=== PATIENT | female | born 1960 | race African-American/Black ===

== ENCOUNTER 2017-02-28 11:09 | Inpatient (IN) | payer MEDICARE, MEDICAID ==
[~2017-02-28] VITALS: Ht 171.4 cm; Wt 89.2 kg
[~2017-02-28 11:09] MED LIST: ASPI-825 PO
[2017-02-28] MEDS ORDERED: OMEG100019 PO (12:05)
[2017-02-28] MEDS ORDERED: PRED5 PO (12:09)
[2017-02-28] MEDS ORDERED: ATEN25 PO (12:09)
[2017-02-28] MEDS ORDERED: GABA-533 PO (12:09)
[2017-02-28] MEDS ORDERED: HYDR25TA PO (12:09)
[2017-02-28] MEDS ORDERED: IBUP-2070 PO (12:09)
[2017-02-28] MEDS ORDERED: ATOR20TA86 PO (12:09)
[2017-02-28 12:20] LABS: BASOPHILS # (AUTO) 0.06 K/uL (0.00-0.20); BASOPHILS % (AUTO) 0.6 % (0.0-2.0); EOSINOPHILS # (AUTO) 0.15 K/uL (0.00-0.70); EOSINOPHILS % (AUTO) 1.53 % (1.0-6.0); HEMATOCRIT 42.6 % (36-46); LYMPHOCYTES # (AUTO) 1.7 K/uL (1.0-4.8); LYMPHOCYTES % (AUTO) 16.7 % (22.0-44.0); MEAN CORPUSCULAR HEMOGLOBIN 30.6 pg (26.0-34.0); MEAN CORPUSCULAR HGB CONC 32.8 G/dL (31.0-37.0); MEAN CORPUSCULAR VOLUME 93 fL (80-100); MONOCYTES # (AUTO) 0.8 K/uL (0.1-1.0); MONOCYTES % (AUTO) 7.5 % (2.0-9.0); NEUTROPHILS # (AUTO) 7.4 K/uL (1.8-7.7); NEUTROPHILS % (AUTO) 73.7 % (40.0-70.0); PLATELET COUNT (AUTO) 192 K/uL (150-450); RED BLOOD CELL COUNT(AUTO) 4.56 MIL/uL (4.00-5.20); RED CELL DISTRIBUTION WIDTH 13.2 % (11.5-14.5); WHITE BLOOD COUNT (AUTO) 10.1 K/uL (4.5-11.0)
[2017-02-28 12:26] LABS: ANION GAP 9 mmol/L (8-16); CALCIUM, TOTAL 9.3 mg/dL (8.8-10.5); CARBON DIOXIDE 30 mmol/L (22-29); CHLORIDE 99 mmol/L (98-107); CREATININE 0.83 mg/dL (0.60-1.30); GLOMERULAR FILTR. RATE CALC > 60 mL/min (>60); POTASSIUM 3.7 mmol/L (3.5-5.1); SODIUM SERUM 138 mmol/L (136-145); UREA NITROGEN, BLOOD 11 mg/dL (7-18)
[2017-02-28 12:31] LABS: ALANINE AMINOTRANSFERASE 31 U/L (12-78); ALBUMIN 4.1 g/dL (3.4-5.0); ASPARTATE AMINOTRANSFERASE 19 U/L (15-37); BILIRUBIN,TOTAL 1.4 mg/dL (0.1-1.0); TOTAL PROTEIN, SERUM 8.2 g/dL (6.4-8.2)
[2017-02-28] MEDS ORDERED: ASPIRIN 81 MG CHEWABLE TABLET PO ONE (13:00)
[2017-02-28] MEDS ORDERED: ONDANSETRON HCL 4 MG/2 ML VIAL IVP ONE (13:00)
[2017-02-28] MEDS ORDERED: MORPHINE SULFATE 4 MG/ML SYRINGE IVP ONE (13:00)
[2017-02-28 14:31] LABS: PROTHROMBIN TIME 10.5 SEC (9.4-11.6)
[2017-02-28 14:40] LABS: ERYTHROCYTE SEDIMENTATION RATE 42 MM/HR (0-20)
[2017-02-28 17:08] VITALS: BP 180/87
[2017-02-28 17:55] VITALS: BP 144/76
[2017-02-28] MEDS: HYDROCODONE/ACETAMINOPHEN 5-325 MG TABLET PO PRN (17:56)
[2017-02-28 19:44] VITALS: BP 110/63
[2017-02-28 20:22] LABS: HEMOGLOBIN A1C 5.8 % (4.5-6.2)
[2017-02-28 20:31] LABS: CHOL/HDL RATIO 2.8 (3.9-5.7); THYROID STIMULATING HORMONE 2.49 uIU/mL (0.36-3.74)
[2017-02-28] MEDS ORDERED: GABAPENTIN 300 MG CAPSULE PO SCH (21:00)
[2017-02-28] MEDS: -LIDODERM PATCH NOTE- MISC SCH ×2 (21:32)
[2017-02-28 23:36] VITALS: BP 117/66
[2017-03-01] MEDS ORDERED: ONDANSETRON HCL 4 MG/2 ML VIAL IVP PRN
[2017-03-01] MEDS: HYDROCODONE/ACETAMINOPHEN 5-325 MG TABLET PO PRN ×2 (04:01→16:37)
[2017-03-01 04:20] VITALS: BP 115/68
[2017-03-01 06:27] LABS: BASOPHILS % (AUTO) 0.3 % (0.0-2.0); EOSINOPHILS % (AUTO) 3.6 % (1.0-6.0); HEMATOCRIT 42.1 % (36-46); HEMOGLOBIN 13.3 g/dL (12.0-16.0); LYMPHOCYTES # (AUTO) 2.6 K/uL (1.0-4.8); LYMPHOCYTES % (AUTO) 26.3 % (22.0-44.0); MEAN CORPUSCULAR HEMOGLOBIN 29.8 pg (26.0-34.0); MEAN CORPUSCULAR HGB CONC 31.7 G/dL (31.0-37.0); MEAN CORPUSCULAR VOLUME 94 fL (80-100); MONOCYTES # (AUTO) 0.8 K/uL (0.1-1.0); MONOCYTES % (AUTO) 8.3 % (2.0-9.0); NEUTROPHILS # (AUTO) 6.2 K/uL (1.8-7.7); NEUTROPHILS % (AUTO) 61.5 % (40.0-70.0); PLATELET COUNT (AUTO) 190 K/uL (150-450); RED BLOOD CELL COUNT(AUTO) 4.48 MIL/uL (4.00-5.20); RED CELL DISTRIBUTION WIDTH 13.3 % (11.5-14.5)
[2017-03-01 07:10] LABS: ALANINE AMINOTRANSFERASE 28 U/L (12-78); ALBUMIN 3.7 g/dL (3.4-5.0); ANION GAP 7 mmol/L (8-16); ASPARTATE AMINOTRANSFERASE 19 U/L (15-37); BILIRUBIN,TOTAL 1.5 mg/dL (0.1-1.0); CARBON DIOXIDE 31 mmol/L (22-29); CHLORIDE 99 mmol/L (98-107); CHOL/HDL RATIO 3.2 (3.9-5.7); CREATININE 0.87 mg/dL (0.60-1.30); GLOMERULAR FILTR. RATE CALC > 60 mL/min (>60); POTASSIUM 3.5 mmol/L (3.5-5.1); SODIUM SERUM 137 mmol/L (136-145); TOTAL PROTEIN, SERUM 7.6 g/dL (6.4-8.2); UREA NITROGEN, BLOOD 14 mg/dL (7-18)
[2017-03-01 07:11] LABS: HEMOGLOBIN A1C 5.7 % (4.5-6.2)
[2017-03-01 07:12] VITALS: BP 111/72
[2017-03-01 08:38] LABS: VITAMIN B12 LEVEL > 2000 pg/mL (211-911)
[2017-03-01] MEDS: FISH OIL/OMEGA-3 FATTY ACIDS 500 MG CAPSULE PO SCH (08:47)
[2017-03-01] MEDS: IBUPROFEN 600 MG TABLET PO PRN ×2 (08:47→20:18)
[2017-03-01] MEDS: ATENOLOL 25 MG TABLET PO SCH (08:47)
[2017-03-01] MEDS: HYDROCHLOROTHIAZIDE 25 MG TABLET PO SCH (08:49)
[2017-03-01] MEDS: PredniSONE 5 MG TABLET PO SCH (08:49)
[2017-03-01] MEDS: FAMOTIDINE 20 MG TABLET PO SCH ×2 (08:49→20:18)
[2017-03-01] MEDS: LIDOCAINE HCL 5% TRANSDERMAL PATCH TD SCH (08:49)
[2017-03-01] MEDS: ASPIRIN 81 MG CHEWABLE TABLET PO SCH (09:00)
[2017-03-01] MEDS ORDERED: ASPIRIN 81 MG CHEWABLE TABLET PO SCH (09:00)
[2017-03-01 11:20] VITALS: BP 136/59
[2017-03-01 15:04] VITALS: BP 137/79
[2017-03-01] MEDS: BACLOFEN 10 MG TABLET PO SCH ×2 (16:37→20:18)
[2017-03-01] MEDS: GABAPENTIN 400 MG CAPSULE PO SCH (16:37)
[2017-03-01 19:48] VITALS: BP 120/76
[2017-03-01] MEDS: ATORVASTATIN CALCIUM 20 MG TABLET PO SCH (20:18)
[2017-03-01] MEDS: -LIDODERM PATCH NOTE- MISC SCH ×2 (20:19)
[2017-03-01 23:38] VITALS: BP 96/66
[2017-03-02] VITALS (7 sets, daily range): BP systolic 98–130; BP diastolic 50–79
[2017-03-02] MEDS: HYDROCODONE/ACETAMINOPHEN 5-325 MG TABLET PO PRN (05:07)
[2017-03-02] MEDS: FISH OIL/OMEGA-3 FATTY ACIDS 500 MG CAPSULE PO SCH (08:24)
[2017-03-02] MEDS: GABAPENTIN 400 MG CAPSULE PO SCH (08:24)
[2017-03-02] MEDS: PredniSONE 5 MG TABLET PO SCH (08:25)
[2017-03-02] MEDS: BACLOFEN 10 MG TABLET PO SCH ×2 (08:25→20:39)
[2017-03-02] MEDS: ATENOLOL 25 MG TABLET PO SCH (08:25)
[2017-03-02] MEDS: HYDROCHLOROTHIAZIDE 25 MG TABLET PO SCH (08:25)
[2017-03-02] MEDS: ASPIRIN 81 MG CHEWABLE TABLET PO SCH (08:25)
[2017-03-02] MEDS: FAMOTIDINE 20 MG TABLET PO SCH ×2 (08:25→20:39)
[2017-03-02] MEDS: IBUPROFEN 600 MG TABLET PO PRN (08:26)
[2017-03-02] MEDS: LIDOCAINE HCL 5% TRANSDERMAL PATCH TD SCH (08:30)
[2017-03-02] MEDS ORDERED: ONDANSETRON HCL 4 MG/2 ML VIAL IM PRN (16:15)
[2017-03-02] MEDS: ATORVASTATIN CALCIUM 20 MG TABLET PO SCH (20:38)
[2017-03-02] MEDS: -LIDODERM PATCH NOTE- MISC SCH ×2 (20:41)
[2017-03-03 04:56] VITALS: BP 109/62
[2017-03-03] MEDS: HYDROCODONE/ACETAMINOPHEN 5-325 MG TABLET PO PRN (07:38)
[2017-03-03 07:41] VITALS: BP 118/67
[2017-03-03] MEDS: BACLOFEN 10 MG TABLET PO SCH (08:53)
[2017-03-03] MEDS: PredniSONE 5 MG TABLET PO SCH (08:53)
[2017-03-03] MEDS: GABAPENTIN 400 MG CAPSULE PO SCH (08:53)
[2017-03-03] MEDS: ASPIRIN 81 MG CHEWABLE TABLET PO SCH (08:53)
[2017-03-03] MEDS: FISH OIL/OMEGA-3 FATTY ACIDS 500 MG CAPSULE PO SCH (08:53)
[2017-03-03] MEDS: HYDROCHLOROTHIAZIDE 25 MG TABLET PO SCH (08:53)
[2017-03-03] MEDS: FAMOTIDINE 20 MG TABLET PO SCH (08:53)
[2017-03-03] MEDS: LIDOCAINE HCL 5% TRANSDERMAL PATCH TD SCH (08:54)
[2017-03-03] MEDS ORDERED: KETOROLAC TROMETHAMINE 15 MG/ML VIAL IVP ONE (10:45)
[2017-03-03 12:05] VITALS: BP 114/71
[2017-03-03] MEDS: ATENOLOL 25 MG TABLET PO SCH (12:14)
[2017-03-03 14:48] VITALS: BP 113/50
[2017-03-03] MEDS ORDERED: SUMA25TA9 PO (15:06)
== END 2017-03-03 16:50 | disposition home or self-care (01) | DRG 65 ==
LOC: EMS 11:11 → 5N 15:31
PROVIDERS: ADMIT Family Medicine; ATTEND Family Medicine
DX: I63.9 Cerebral infarction, unspecified (principal); I16.1 Hypertensive emergency; G43.109 Migraine with aura, not intractable, without status migrainosus; E78.5 Hyperlipidemia, unspecified; G89.4 Chronic pain syndrome; M79.7 Fibromyalgia; I10 Essential (primary) hypertension; I70.0 Atherosclerosis of aorta; M19.90 Unspecified osteoarthritis, unspecified site; M54.81 Occipital neuralgia; G62.9 Polyneuropathy, unspecified; Z88.0 Allergy status to penicillin; Z79.899 Other long term (current) drug therapy; Z79.1 Long term (current) use of non-steroidal anti-inflammatories (NSAID); Z79.82 Long term (current) use of aspirin; Z90.49 Acquired absence of other specified parts of digestive tract; Z90.710 Acquired absence of both cervix and uterus; Z79.52 Long term (current) use of systemic steroids; Z86.73 Personal history of transient ischemic attack (TIA), and cerebral infarction without residual deficits
CPT/HCPCS: 70450; 70544; 70551; 72141; 76881; 82607; 82746; 83036; 83735; 84443; 85651; 92523; 93005; 93306; 93880; 96374; 96375; 97162; 97165; 97535; 99291; J1885; J2270; J2405

== ENCOUNTER 2020-04-14 14:53 | Emergency (ER) | payer MEDICARE, MEDICAID ==
[~2020-04-14] VITALS: Ht 175.3 cm; Wt 97.7 kg
[~2020-04-14 14:53] MED LIST changes: +ATEN-73 PO; +ATOR20TA86 PO; +GABA-1201 PO; +HYDR-1475 PO; +IBUP-2070 PO; +OMEG-135 PO; +PRED5 PO; +SUMA25TA9 PO
[2020-04-14 16:11] LABS: BASOPHILS % (AUTO) 0.6 % (0.0-2.0); HEMATOCRIT 42.4 % (36-46); LYMPHOCYTES # (AUTO) 1.8 K/uL (1.0-4.8); MEAN CORPUSCULAR HGB CONC 33.1 G/dL (31.0-37.0); MEAN CORPUSCULAR VOLUME 94 fL (80-100); MONOCYTES # (AUTO) 0.4 K/uL (0.1-1.0); MONOCYTES % (AUTO) 5.9 % (2.0-9.0); NEUTROPHILS # (AUTO) 4.4 K/uL (1.8-7.7); NEUTROPHILS % (AUTO) 64.5 % (40.0-70.0); PLATELET COUNT (AUTO) 187 K/uL (150-450); RED BLOOD CELL COUNT(AUTO) 4.53 MIL/uL (4.00-5.20); RED CELL DISTRIBUTION WIDTH 12.4 % (11.5-14.5)
[2020-04-14 16:21] LABS: ANION GAP 6 mmol/L (8-16); CALCIUM, TOTAL 9.1 mg/dL (8.8-10.5); CARBON DIOXIDE 30 mmol/L (22-29); CHLORIDE 104 mmol/L (98-107); CREATININE 1.03 mg/dL (0.60-1.30); GLOMERULAR FILTR. RATE CALC > 60 mL/min (>60); GLUCOSE,RANDOM 100 mg/dL (70-110); POTASSIUM 3.8 mmol/L (3.5-5.1); SODIUM SERUM 140 mmol/L (136-145); UREA NITROGEN, BLOOD 16 mg/dL (7-18)
[2020-04-14 16:29] LABS: ALANINE AMINOTRANSFERASE 21 U/L (12-78); ALBUMIN 3.9 g/dL (3.4-5.0); ALKALINE PHOSPHATASE 81 U/L (46-116); ASPARTATE AMINOTRANSFERASE 19 U/L (15-37); BILIRUBIN,TOTAL 0.7 mg/dL (0.1-1.0); TOTAL PROTEIN, SERUM 7.6 g/dL (6.4-8.2)
[2020-04-14 17:57] VITALS: BP 179/90
== END 2020-04-14 18:19 | disposition home or self-care (01) ==
LOC: EMS 15:03
DX: K92.0 Hematemesis (principal); I10 Essential (primary) hypertension; F12.90 Cannabis use, unspecified, uncomplicated; Z88.0 Allergy status to penicillin; Z79.899 Other long term (current) drug therapy

== ENCOUNTER 2022-02-09 17:39 | Emergency (ER) | payer MEDICARE, MEDICAID ==
[~2022-02-09] VITALS: Ht 170.2 cm; Wt 49.5 kg
[~2022-02-09 17:39] MED LIST changes: -ASPI-825 PO; -HYDR-1475 PO; -IBUP-2070 PO; +OMEG-108 PO; -OMEG-135 PO; +PRED-549 PO; -PRED5 PO
[2022-02-09] MEDS ORDERED: KETOROLAC TROMETHAMINE 60 MG/2 ML VIAL IM ONE (19:15)
[2022-02-09] MEDS ORDERED: NAPR-1025 PO (20:39)
[2022-02-09 21:30] VITALS: BP 165/96
== END 2022-02-09 21:36 | disposition home or self-care (01) ==
LOC: EMS 17:47
DX: S83.91XA Sprain of unspecified site of right knee, initial encounter (principal); S93.401A Sprain of unspecified ligament of right ankle, initial encounter; I10 Essential (primary) hypertension; M79.7 Fibromyalgia; F12.90 Cannabis use, unspecified, uncomplicated; Z86.79 Personal history of other diseases of the circulatory system; Z86.69 Personal history of other diseases of the nervous system and sense organs; Z90.710 Acquired absence of both cervix and uterus; Z98.890 Other specified postprocedural states; Z88.0 Allergy status to penicillin; W18.39XA Other fall on same level, initial encounter; Y93.89 Activity, other specified; Y92.89 Other specified places as the place of occurrence of the external cause; Y99.8 Other external cause status
CPT/HCPCS: 73562; 73590; 73610; 96372; 99284; J1885

== ENCOUNTER 2024-02-10 16:18 | Emergency (ER) | payer MEDICARE, MEDICAID ==
[~2024-02-10] VITALS: Ht 170.2 cm; Wt 94.1 kg
[~2024-02-10 16:18] MED LIST changes: +ATOR20TA PO; -ATOR20TA86 PO; +NAPR-1025 PO; -OMEG-108 PO; +OMEG-135 PO; +SUMA25TA15 PO; -SUMA25TA9 PO
[2024-02-10] MEDS ORDERED: AMLO-257 PO (16:39)
[2024-02-10] MEDS ORDERED: GABA-1181 PO (16:39)
[2024-02-10] MEDS ORDERED: LISI-893 PO (16:39)
[2024-02-10 16:41] VITALS: TEMP 99.4
[2024-02-10] MEDS: LevETIRAcetam 500 MG TABLET PO ONE (19:04)
[2024-02-10 19:37] LABS: BASOPHILS % (AUTO) 0.8 % (0.0-2.0); EOSINOPHILS % (AUTO) 2.9 % (1.0-6.0); HEMATOCRIT 44.1 % (36-46); HEMOGLOBIN 14.4 g/dL (12.0-16.0); LYMPHOCYTES % (AUTO) 25.9 % (22.0-44.0); MEAN CORPUSCULAR HEMOGLOBIN 30.8 pg (26.0-34.0); MEAN CORPUSCULAR HGB CONC 32.7 G/dL (31.0-37.0); MEAN CORPUSCULAR VOLUME 94 fL (80-100); MONOCYTES # (AUTO) 0.8 K/uL (0.1-1.0); MONOCYTES % (AUTO) 6.9 % (2.0-9.0); NEUTROPHILS # (AUTO) 7.4 K/uL (1.8-7.7); NEUTROPHILS % (AUTO) 63.5 % (40.0-70.0); PLATELET COUNT (AUTO) 208 K/uL (150-450); RED BLOOD CELL COUNT(AUTO) 4.69 MIL/uL (4.00-5.20); RED CELL DISTRIBUTION WIDTH 12.6 % (11.5-14.5); WHITE BLOOD COUNT (AUTO) 11.7 K/uL (4.5-11.0)
[2024-02-10 20:09] LABS: ANION GAP 12 mmol/L (8-16); CALCIUM, TOTAL 9.1 mg/dL (8.8-10.5); CARBON DIOXIDE 27 mmol/L (22-29); CHLORIDE 102 mmol/L (98-107); CREATININE 0.82 mg/dL (0.60-1.30); GLOMERULAR FILTR. RATE CALC > 60 mL/min (>60); GLUCOSE,RANDOM 109 mg/dL (70-110); POTASSIUM 3.8 mmol/L (3.5-5.1); SODIUM SERUM 141 mmol/L (136-145); UREA NITROGEN, BLOOD 19 mg/dL (7-18)
[2024-02-10 20:10] VITALS: BP 129/80; PULSE 98; RESP 14
[2024-02-10] MEDS ORDERED: NAPR-1193 PO (21:09)
[2024-02-10] MEDS ORDERED: LEVE750T4 PO (21:09)
[2024-02-10] MEDS ORDERED: NAPROXEN 250 MG TABLET PO ONE (21:15)
[2024-02-10] MEDS: NAPROXEN 375 MG TABLET PO ONE (21:17)
== END 2024-02-10 21:31 | disposition home or self-care (01) ==
LOC: EMS 16:18
DX: G40.909 Epilepsy, unspecified, not intractable, without status epilepticus (principal); M17.11 Unilateral primary osteoarthritis, right knee; I10 Essential (primary) hypertension; M79.7 Fibromyalgia; F12.90 Cannabis use, unspecified, uncomplicated; Z86.73 Personal history of transient ischemic attack (TIA), and cerebral infarction without residual deficits; Z90.49 Acquired absence of other specified parts of digestive tract; Z90.710 Acquired absence of both cervix and uterus; Z88.0 Allergy status to penicillin
CPT/HCPCS: 29505; 70450; 80048; 85025; 93005; 99284